=== PATIENT | female | born 1965 | race African-American/Black ===

== ENCOUNTER 2016-10-09 17:38 | Inpatient (IN) | payer MEDICARE, OTHER ==
[~2016-10-09] VITALS: Ht 160 cm; Wt 57.8 kg
[2016-10-09] MEDS ORDERED: FURO20TA4 PO (17:48)
[2016-10-09] MEDS ORDERED: ATOR10TA69 PO (17:48)
[2016-10-09] MEDS ORDERED: HYDR-4133 PO (17:48)
[2016-10-09] MEDS ORDERED: SODIUM CHLORIDE 0.9% 1,000 ML IV ONE (18:16)
[2016-10-09] MEDS ORDERED: ONDANSETRON HCL 4MG/2ML VIAL IV STA (18:16)
[2016-10-09] MEDS ORDERED: MORPHINE SULFATE 4 MG/ML CPJ (NOT FOR IM USE) IV STA (18:16)
[2016-10-09] MEDS ORDERED: FAMOTIDINE 20MG/2ML VIAL IV ONE (18:30)
[2016-10-09 18:51] LABS: BASOPHILS % 0.7 % (0.0-2.0); EOSINOPHILS % 0.8 % (0.0-5.0); LYMPHOCYTES % 11.4 % (20.0-50.0); MEAN CORPUSCULAR HEMOGLOBIN 23.6 pg (28.0-32.0); MEAN CORPUSCULAR VOLUME 70.7 fL (81.0-99.0); MONOCYTES % 5.4 % (2.0-8.0); NEUTROPHILS % 81.7 % (40.0-76.0); PLATELET 255 x1000/uL (130-400); RED BLOOD CELL COUNT 2.42 mill/uL (4.2-5.4); RED CELL DISTRIBUTION WIDTH 18.8 % (11.6-14.6)
[2016-10-09 18:56] LABS: CHLORIDE 109 mEq/L (98-107); HEMATOCRIT. 17.1 % (36.0-48.0); HEMOGLOBIN. 5.7 g/dL (12.0-16.0)
[2016-10-09 18:58] LABS: INR 1.1; PARTIAL THROMBOPLASTIN TIME 27.5 sec (24.0-34.0); PROTHROMBIN TIME 11.5 sec
[2016-10-09 19:00] LABS: CARBON DIOXIDE 12 mEq/L (21-32)
[2016-10-09] MEDS ORDERED: PANTOPRAZOLE SODIUM 40 MG/VIAL IV ONE (19:45)
[2016-10-09] MEDS ORDERED: DOCUSATE SODIUM 100MG CAPSULE PO PRN (23:00)
[2016-10-09] MEDS ORDERED: ACETAMINOPHEN 325MG TABLET PO PRN (23:00)
[2016-10-09] MEDS ORDERED: HYDROCODONE/ACETAMINOPHEN 5/325MG TABLET PO PRN (23:00)
[2016-10-09] MEDS ORDERED: ACETAMINOPHEN 650MG/20.3ML UDC GT PRN (23:00)
[2016-10-09] MEDS ORDERED: MAGNESIUM/ALUMINUM HYDROXIDE/SIMETHICONE 30ML UDC PO PRN (23:00)
[2016-10-09] MEDS ORDERED: ACETAMINOPHEN 650MG SUPP PR PRN (23:00)
[2016-10-09] MEDS ORDERED: IPRATROPIUM/ALBUTEROL 0.5-3(2.5)MG/3ML NEB INH PRN (23:00)
[2016-10-09] MEDS ORDERED: NA PHOS,M-B/NA PHOS,DI-BA ENEMA 118ML PR PRN (23:00)
[2016-10-09] MEDS ORDERED: GUAIFENESIN 200MG/10ML SUGAR FREE UDC PO PRN (23:00)
[2016-10-09 23:14] LABS: CLARITY URINE CLEAR (CLEAR); COLOR URINE YELLOW (YELLOW); GLUCOSE URINE 1+ (NEGATIVE); KETONES URINE NEGATIVE (NEGATIVE); LEUKOCYTE ESTERASE URINE TRACE (NEGATIVE); NITRITE URINE NEGATIVE (NEGATIVE); OCCULT BLOOD URINE TRACE (NEGATIVE); PH URINE 7.5 (4.5-8.0); PROTEIN URINE 3+ (NEGATIVE); SPECIFIC GRAVITY URINE 1.012 (1.005-1.030); UROBILINOGEN URINE 0.2 E.U./dL (0.2-1.0)
[2016-10-09] MEDS ORDERED: ONDANSETRON HCL 4MG/2ML VIAL IV ONE (23:15)
[2016-10-09] MEDS: CLONIDINE 0.1MG TABLET PO PRN (23:45)
[2016-10-10] VITALS (15 sets, daily range): BP systolic 139–190; BP diastolic 62–93
[2016-10-10] MEDS ORDERED: AMLO10TA4 PO (02:20)
[2016-10-10] MEDS ORDERED: CALC0.253 PO (02:21)
[2016-10-10] MEDS ORDERED: NEPVIT PO (02:23)
[2016-10-10] MEDS ORDERED: PARO-41 PO (02:23)
[2016-10-10] MEDS ORDERED: FOLI-43 PO (02:23)
[2016-10-10] MEDS ORDERED: AURYXIA (02:25)
[2016-10-10] MEDS: ONDANSETRON HCL 4MG/2ML VIAL IV PRN ×2 (04:17→13:52)
[2016-10-10] MEDS: SODIUM CHLORIDE 0.9% INJ 3ML FLUSH IVF SCH ×3 (05:32→21:37)
[2016-10-10 10:31] LABS: BASOPHILS % 0.4 % (0.0-2.0); EOSINOPHILS % 0.4 % (0.0-5.0); HEMATOCRIT. 26.4 % (36.0-48.0); HEMOGLOBIN. 8.8 g/dL (12.0-16.0); LYMPHOCYTES % 14.8 % (20.0-50.0); MEAN CORPUSCULAR HEMOGLOBIN 25.5 pg (28.0-32.0); MEAN CORPUSCULAR VOLUME 76.9 fL (81.0-99.0); MEAN PLATELET VOLUME 7.7 fl (7.4-10.4); MONOCYTES % 8.8 % (2.0-8.0); NEUTROPHILS % 75.6 % (40.0-76.0); PLATELET 256 x1000/uL (130-400); RED BLOOD CELL COUNT 3.43 mill/uL (4.2-5.4); RED CELL DISTRIBUTION WIDTH 19.6 % (11.6-14.6)
[2016-10-10 10:53] LABS: CARBON DIOXIDE 14 mEq/L (21-32); CHLORIDE 112 mEq/L (98-107); HDL CHOLESTEROL 58 mg/dL (40-59); LDL CHOLESTEROL 152 mg/dL (5-100)
[2016-10-10] MEDS: CLONIDINE 0.1MG TABLET PO PRN (13:11)
[2016-10-10] MEDS: DIPHENHYDRAMINE 50MG/ML VIAL IV PRN ×2 (13:52→19:54)
[2016-10-10] MEDS: AMLODIPINE 10MG TABLET PO SCH (15:15)
[2016-10-10 16:04] LABS: TOTAL IRON BINDING CAPACITY 187 ug/dL (250-450)
[2016-10-10 17:04] LABS: FERRITIN 135 ng/mL (10-291)
[2016-10-10 17:16] LABS: HEPATITIS B SURFACE ANTIGEN NEGATIVE
[2016-10-10 17:44] LABS: HEPATITIS B CORE AB IGM NEGATIVE
[2016-10-10] MEDS ORDERED: EPOETIN ALFA 10000UNITS/ML VIAL SUBCUT NR (21:00)
[2016-10-11] VITALS (14 sets, daily range): BP systolic 145–191; BP diastolic 65–97
[2016-10-11] MEDS: DIPHENHYDRAMINE 50MG/ML VIAL IV PRN ×3 (00:38→10:19)
[2016-10-11] MEDS: SODIUM CHLORIDE 0.9% INJ 3ML FLUSH IVF SCH ×3 (06:30→20:09)
[2016-10-11 06:42] LABS: BASOPHILS % 0.4 % (0.0-2.0); HEMATOCRIT. 24.5 % (36.0-48.0); HEMOGLOBIN. 8.3 g/dL (12.0-16.0); LYMPHOCYTES % 20.2 % (20.0-50.0); MEAN CORPUSCULAR HEMOGLOBIN 25.4 pg (28.0-32.0); MEAN CORPUSCULAR VOLUME 75.1 fL (81.0-99.0); MEAN PLATELET VOLUME 8.2 fl (7.4-10.4); MONOCYTES % 11.7 % (2.0-8.0); NEUTROPHILS % 66.7 % (40.0-76.0); PLATELET 218 x1000/uL (130-400); RED BLOOD CELL COUNT 3.26 mill/uL (4.2-5.4); RED CELL DISTRIBUTION WIDTH 19.1 % (11.6-14.6)
[2016-10-11 07:13] LABS: PHOSPHORUS 7.7 mg/dL (2.5-4.9)
[2016-10-11] MEDS: AMLODIPINE 10MG TABLET PO SCH ×2 (08:54→11:47)
[2016-10-11] MEDS: CLONIDINE 0.1MG TABLET PO PRN (09:39)
[2016-10-11] MEDS ORDERED: SODIUM CHLORIDE 0.9% 10ML VIAL ONE (14:33)
[2016-10-11] MEDS ORDERED: SIMETHICONE 40 MG/0.6 ML 30ML ONE ×2 (14:33→16:27)
[2016-10-11] MEDS ORDERED: FENTANYL CITRATE/PF 50MCG/ML 2ML VIAL IV PRN (16:22)
[2016-10-11] MEDS ORDERED: MIDAZOLAM HCL 2 MG/2 ML VIAL IV PRN (16:22)
[2016-10-11] MEDS ORDERED: FENTANYL CITRATE/PF 50MCG/ML 2ML VIAL ONE (16:27)
[2016-10-11] MEDS ORDERED: MIDAZOLAM HCL 5 MG/5 ML VIAL ONE (16:28)
[2016-10-11] MEDS: DIPHENHYDRAMINE 50MG CAPSULE PO PRN (20:09)
[2016-10-11] MEDS ORDERED: EPOETIN ALFA 10000UNITS/ML VIAL SUBCUT SCH (21:00)
[2016-10-12] VITALS (9 sets, daily range): BP systolic 123–180; BP diastolic 57–85
[2016-10-12] MEDS: DIPHENHYDRAMINE 50MG CAPSULE PO PRN (02:20)
[2016-10-12 05:37] LABS: BASOPHILS % 0.3 % (0.0-2.0); HEMATOCRIT. 31.3 % (36.0-48.0); HEMOGLOBIN. 10.7 g/dL (12.0-16.0); LYMPHOCYTES % 17.1 % (20.0-50.0); MEAN CORPUSCULAR HEMOGLOBIN 26.2 pg (28.0-32.0); MEAN CORPUSCULAR VOLUME 76.8 fL (81.0-99.0); MONOCYTES % 9.9 % (2.0-8.0); NEUTROPHILS % 71.7 % (40.0-76.0); PLATELET 173 x1000/uL (130-400); RED BLOOD CELL COUNT 4.08 mill/uL (4.2-5.4); RED CELL DISTRIBUTION WIDTH 18.2 % (11.6-14.6)
[2016-10-12] MEDS: CLONIDINE 0.1MG TABLET PO PRN (05:37)
[2016-10-12] MEDS: SODIUM CHLORIDE 0.9% INJ 3ML FLUSH IVF SCH ×2 (05:37→13:47)
[2016-10-12 06:38] LABS: CARBON DIOXIDE 24 mEq/L (21-32); CHLORIDE 100 mEq/L (98-107); PHOSPHORUS 7.2 mg/dL (2.5-4.9)
[2016-10-12] MEDS: AMLODIPINE 10MG TABLET PO SCH (08:27)
[2016-10-12] MEDS ORDERED: HYDRALAZINE HCL 50MG TABLET PO SCH (10:00)
[2016-10-12] MEDS ORDERED: PANTOPRAZOLE 40MG DR TABLET PO SCH (10:00)
[2016-10-12] MEDS ORDERED: FOLIC ACID/VITAMIN B COMP W-C TABLET PO SCH (10:00)
[2016-10-12] MEDS ORDERED: CARVEDILOL 25MG TABLET PO SCH (10:00)
[2016-10-12] MEDS ORDERED: MAGNESIUM 2 G PREMIX 50 ML IV NR (11:00)
[2016-10-12] MEDS ORDERED: SEVELAMER CARBONATE 800 MG TABLET PO SCH (12:20)
[2016-10-12] MEDS ORDERED: ATORVASTATIN CALCIUM 40MG TABLET PO SCH (21:00)
== END 2016-10-12 17:15 | disposition home or self-care (01) | DRG 682 ==
LOC: ER 18:13 → 3WST 20:31 → CANRESERV 23:22 → ENRESERV 23:22 → EDBEDREQSVC 10-10 00:18
PROVIDERS: ADMIT Family Medicine; ATTEND Family Medicine
PROC: 30233N1 Transfusion of Nonautologous Red Blood Cells into Peripheral Vein, Percutaneous Approach (ICD-10-PCS; 2016-10-09)
PROC: 5A1D60Z (ICD-10-PCS; 2016-10-10)
PROC: 0DB68ZX Excision of Stomach, Via Natural or Artificial Opening Endoscopic, Diagnostic (ICD-10-PCS; principal; 2016-10-11 16:00)
DX: N17.9 Acute kidney failure, unspecified (principal); J96.91 Respiratory failure, unspecified with hypoxia; E43 Unspecified severe protein-calorie malnutrition; I13.2 Hypertensive heart and chronic kidney disease with heart failure and with stage 5 chronic kidney disease, or end stage renal disease; N18.6 End stage renal disease; N25.81 Secondary hyperparathyroidism of renal origin; D50.9 Iron deficiency anemia, unspecified; E11.22 Type 2 diabetes mellitus with diabetic chronic kidney disease; R74.8 Abnormal levels of other serum enzymes; I50.9 Heart failure, unspecified; K29.60 Other gastritis without bleeding; K44.9 Diaphragmatic hernia without obstruction or gangrene; Z99.2 Dependence on renal dialysis; Z79.899 Other long term (current) drug therapy; Z87.11 Personal history of peptic ulcer disease; Z83.3 Family history of diabetes mellitus; Z68.22 Body mass index [BMI] 22.0-22.9, adult
CPT/HCPCS: 36415; 71010; 76705; 80048; 80053; 80061; 81001; 82728; 83540; 83550; 83690; 83735; 83970; 84100; 84484; 85025; 85610; 85730; 86705; 86803; 86850; 86900; 86920; 87086; 87340; 88305; 88312; 88313; 93005; 93970; 96361; 96374; 96375; 99285; A4216; C9113; J0885; J1200; J2250; J2270; J2405; J3010; J3475; J3490; J7030; J7040; J7050; P9016; Q0163

== ENCOUNTER 2018-10-25 17:39 | Inpatient (IN) | payer MEDICARE, MEDICAID ==
[~2018-10-25] VITALS: Ht 162.6 cm; Wt 62.6 kg
[~2018-10-25 17:39] MED LIST: AMLO10TA4 PO; ATOR10TA69 PO; AURYXIA; CALC0.253 PO; FOLI-43 PO; HYDR-4133 PO; NEPVIT PO; PARO-41 PO
[2018-10-25 19:43] LABS: BASOPHILS % 0.8 % (0.0-2.0); HEMOGLOBIN. 12.7 g/dL (12.0-16.0); MEAN CORPUSCULAR HEMOGLOBIN 27.3 pg (28.0-32.0); MEAN PLATELET VOLUME 8.4 fl (7.4-10.4); MONOCYTES % 8.8 % (2.0-8.0); NEUTROPHILS % 59.4 % (40.0-76.0); PLATELET 208 x1000/uL (130-400); RED BLOOD CELL COUNT 4.65 mill/uL (4.2-5.4); RED CELL DISTRIBUTION WIDTH 15.4 % (11.6-14.6)
[2018-10-25 19:46] LABS: CHLORIDE 94 mEq/L (98-107)
[2018-10-25] MEDS ORDERED: ALBUTEROL (0.083%) 2.5MG/3ML NEB HHN ONE (20:15)
[2018-10-25] MEDS ORDERED: SODIUM POLYSTYRENE SULFONATE 15 G/60 ML BOT PO ONE (20:15)
[2018-10-25] MEDS ORDERED: CALCIUM GLUCONATE 1,000 MG in DEXT 5% WATER 100 ML IV ONE (20:15)
[2018-10-25] MEDS ORDERED: DEXTROSE 50% WATER 50ML SYRINGE IV ONE (20:15)
[2018-10-25] MEDS ORDERED: INSULIN REGULAR (HUMULIN R) 300UNITS/3ML IV ONE (20:15)
[2018-10-25 23:24] VITALS: BP 112/58
[2018-10-26] MEDS ORDERED: HYDR-4135 PO (00:02)
[2018-10-26] MEDS ORDERED: CARV25TA47 PO (00:02)
[2018-10-26] MEDS ORDERED: LOSA100T32 PO (00:02)
[2018-10-26] MEDS ORDERED: FOLI0.8T23 PO (00:02)
[2018-10-26] MEDS ORDERED: SEVE800T8 PO (00:02)
[2018-10-26] MEDS ORDERED: PANT40TA4 PO (00:02)
[2018-10-26] MEDS ORDERED: ATOR-2 PO (00:02)
[2018-10-26] MEDS ORDERED: CALC667C PO (00:02)
[2018-10-26 04:00] VITALS: BP 204/42
[2018-10-26 04:10] VITALS: BP 118/50
[2018-10-26] MEDS ORDERED: ONDANSETRON HCL 4MG/2ML INJ IV PRN (07:00)
[2018-10-26] MEDS ORDERED: PANTOPRAZOLE 40MG DR TABLET PO SCH (07:40)
[2018-10-26 08:00] VITALS: BP 120/103
[2018-10-26] MEDS ORDERED: MEDICATION NOT ON FORMULARY EA (Losartan Potassium 100 MG) PO SCH (09:00)
[2018-10-26] MEDS ORDERED: MEDICATION NOT ON FORMULARY EA (Sevelamer Carbonate (Renvela) 800 MG) PO SCH (09:00)
[2018-10-26] MEDS ORDERED: MEDICATION NOT ON FORMULARY EA (Calcium Acetate 667 MG) PO SCH (09:00)
[2018-10-26] MEDS ORDERED: SEVELAMER CARBONATE 800 MG TABLET PO SCH ×2 (09:00→13:10)
[2018-10-26] MEDS ORDERED: LOSARTAN POTASSIUM 100 MG TABLET PO SCH (09:00)
[2018-10-26] MEDS ORDERED: MEDICATION NOT ON FORMULARY EA (Atorvastatin Calcium 80 MG) PO SCH (09:00)
[2018-10-26] MEDS ORDERED: CALCIUM ACETATE 667MG CAPSULE PO SCH ×2 (09:00→13:10)
[2018-10-26] MEDS ORDERED: AMLODIPINE 10MG TABLET PO SCH (09:00)
[2018-10-26] MEDS ORDERED: CARVEDILOL 25MG TABLET PO SCH (09:00)
[2018-10-26] MEDS ORDERED: MEDICATION NOT ON FORMULARY EA (Pantoprazole Sodium 40 MG) PO SCH (09:00)
[2018-10-26] MEDS ORDERED: MEDICATION NOT ON FORMULARY EA (Hydralazine Hcl 50 MG) PO SCH (09:00)
[2018-10-26] MEDS ORDERED: HYDRALAZINE HCL 50MG TABLET PO SCH ×2 (09:00→14:00)
[2018-10-26 11:41] VITALS: BP 119/68
[2018-10-26] MEDS ORDERED: ATORVASTATIN CALCIUM 40MG TABLET PO SCH (21:00)
== END 2018-10-26 12:16 | disposition home or self-care (01) | DRG 640 ==
LOC: ER 17:39 → EDBEDREQ 20:25 → EDBEDREQTM 20:29 → EDBEDREQ 20:29 → ENRESERV 22:02 → 7WST 23:41
PROVIDERS: ADMIT Internal Medicine; ATTEND Internal Medicine
PROC: 5A1D70Z Performance of Urinary Filtration, Intermittent, Less than 6 Hours Per Day (ICD-10-PCS; principal; 2018-10-26)
DX: E87.5 Hyperkalemia (principal); N18.6 End stage renal disease; I12.0 Hypertensive chronic kidney disease with stage 5 chronic kidney disease or end stage renal disease; N25.81 Secondary hyperparathyroidism of renal origin; E87.1 Hypo-osmolality and hyponatremia; E11.22 Type 2 diabetes mellitus with diabetic chronic kidney disease; E78.00 Pure hypercholesterolemia, unspecified; E78.5 Hyperlipidemia, unspecified; E83.39 Other disorders of phosphorus metabolism; E87.8 Other disorders of electrolyte and fluid balance, not elsewhere classified; K27.9 Peptic ulcer, site unspecified, unspecified as acute or chronic, without hemorrhage or perforation; D64.9 Anemia, unspecified; Z91.11 Patient's noncompliance with dietary regimen; Z98.891 History of uterine scar from previous surgery; Z99.2 Dependence on renal dialysis; Z87.11 Personal history of peptic ulcer disease; Z79.899 Other long term (current) drug therapy
CPT/HCPCS: 36415; 71045; 80048; 83605; 84484; 93005; 94640; 96374; 96375; 99291; C1893; J0610; J1815; J7060; J7611